=== PATIENT | female | born 1990 | race Two or more races ===

== ENCOUNTER 2018-06-07 18:56 | Emergency (ER) | payer BC, OTHER ==
[2018-06-07] MEDS: DIAZEPAM 2 MG TAB PO (21:30)
[2018-06-07] MEDS: DEXAMETHASONE 10 MG/ML 1 ML INJ PO (21:30)
[2018-06-07] MEDS: KETOROLAC 60 MG INJ IM (21:31)
== END 2018-06-07 22:30 | disposition home or self-care (01) ==
LOC: FTE 18:56
DX: M54.5 Low back pain (principal); I10 Essential (primary) hypertension
CPT/HCPCS: 72100; 81025; 96372; 99284-25